=== PATIENT | female | born 1960 | race Caucasian/White ===

== ENCOUNTER 2022-03-09 13:11 | Outpatient (REF) | payer MEDICAID, SELFPAY ==
--- NOTE | ~2022-03-09 | XR_ITS ---
EXAMINATION: XR ANKLE, RIGHT XR ANKLE, LEFT XR FOOT, RIGHT XR FOOT, LEFT CLINICAL INFORMATION: M34.9 - Systemic sclerosis, unspecified COMPARISON: None TECHNIQUE: There are 2 views of each ankle and 2 views of each foot. Each side also includes a lateral view with wide [id number] to include both the ankle and foot. There are a total of 10 views, 5 on each side. FINDINGS: Right: Normal bony mineralization. The ankle mortise is symmetric. The malleoli are intact. No ankle joint narrowing or visible capsular effusion. The retrocalcaneal recess is preserved. The ankle joint and subtalar joint are unremarkable. There is a moderate plantar calcaneal spur. The midfoot is unremarkable. There are small para-articular cysts versus healed erosions involving the medial head and medial base first metatarsal and medial head first proximal phalanx without associated joint narrowing or chondrocalcinosis. There is focal soft tissue swelling adjacent to head fifth metatarsal on lateral side with a healed erosion head neck fifth metatarsal. The interphalangeal joints are unremarkable. Left: Normal bony mineralization. The ankle mortise is symmetric. The malleoli are intact. No ankle capsular effusion. The ankle joint and subtalar joints are unremarkable. The retrocalcaneal recess is preserved. There is a bulky plantar calcaneal spur. There is small subcortical cyst versus healed erosion medial base first metatarsal. The midfoot and forefoot otherwise show no joint narrowing or erosive changes. XR/XR foot LT min 3V IMPRESSION: Right: -Moderate plantar calcaneal spur. -Focal soft tissue swelling adjacent to head fifth metatarsal on lateral side with healed erosion 5th metatarsal head neck. -Small para-articular cyst versus healed erosions medial base and [id number] MT and medial [id number] PP. No joint narrowing. Left: -Bulky plantar calcaneal spur. -Small para-articular cyst versus healed erosions medial base 1st MT. No joint narrowing.
--- NOTE | ~2022-03-09 | XR_ITS ---
EXAMINATION: XR ANKLE, RIGHT XR ANKLE, LEFT XR FOOT, RIGHT XR FOOT, LEFT CLINICAL INFORMATION: M34.9 - Systemic sclerosis, unspecified COMPARISON: None TECHNIQUE: There are 2 views of each ankle and 2 views of each foot. Each side also includes a lateral view with wide [id number] to include both the ankle and foot. There are a total of 10 views, 5 on each side. FINDINGS: Right: Normal bony mineralization. The ankle mortise is symmetric. The malleoli are intact. No ankle joint narrowing or visible capsular effusion. The retrocalcaneal recess is preserved. The ankle joint and subtalar joint are unremarkable. There is a moderate plantar calcaneal spur. The midfoot is unremarkable. There are small para-articular cysts versus healed erosions involving the medial head and medial base first metatarsal and medial head first proximal phalanx without associated joint narrowing or chondrocalcinosis. There is focal soft tissue swelling adjacent to head fifth metatarsal on lateral side with a healed erosion head neck fifth metatarsal. The interphalangeal joints are unremarkable. Left: Normal bony mineralization. The ankle mortise is symmetric. The malleoli are intact. No ankle capsular effusion. The ankle joint and subtalar joints are unremarkable. The retrocalcaneal recess is preserved. There is a bulky plantar calcaneal spur. There is small subcortical cyst versus healed erosion medial base first metatarsal. The midfoot and forefoot otherwise show no joint narrowing or erosive changes. XR/XR foot RT min 3V IMPRESSION: Right: -Moderate plantar calcaneal spur. -Focal soft tissue swelling adjacent to head fifth metatarsal on lateral side with healed erosion 5th metatarsal head neck. -Small para-articular cyst versus healed erosions medial base and [id number] MT and medial [id number] PP. No joint narrowing. Left: -Bulky plantar calcaneal spur. -Small para-articular cyst versus healed erosions medial base 1st MT. No joint narrowing.
--- NOTE | ~2022-03-09 | XR_ITS ---
EXAMINATION: XR HAND WRIST, RIGHT XR HAND WRIST, LEFT CLINICAL INFORMATION: M34.9 - Systemic sclerosis, unspecified COMPARISON: Bilateral ankles and feet 03/09/2022. TECHNIQUE: Each hand and wrist are imaged in 3 large [id number]-dv-brcy images with a navicular view of the wrist. There are a total of 8 views, 4 for the left side and 4 for the right side. FINDINGS: Right: Normal bony mineralization. No periarticular demineralization. The ulnar variance is neutral. The pronator quadratus fat pad appears normal. The carpus shows no joint narrowing or chondrocalcinosis. There is a small para-articular erosion versus subcortical cyst lateral side distal navicular. The MCP and interphalangeal joints are unremarkable. No focal joint narrowing or erosive changes. Left: Normal bony mineralization. No periarticular demineralization. The ulnar variance is neutral. The pronator quadratus fat pad appears normal. The carpus shows no joint narrowing, chondrocalcinosis, or erosive change. The MCP and interphalangeal joints are unremarkable. No focal joint narrowing or erosive changes. XR/XR hand wrist LT IMPRESSION: Right: -Small para-articular erosion versus subcortical cyst lateral side distal navicular. -Otherwise, no joint narrowing or erosive changes. Left: -No joint narrowing or erosive changes.
--- NOTE | ~2022-03-09 | XR_ITS ---
EXAMINATION: XR HAND WRIST, RIGHT XR HAND WRIST, LEFT CLINICAL INFORMATION: M34.9 - Systemic sclerosis, unspecified COMPARISON: Bilateral ankles and feet 03/09/2022. TECHNIQUE: Each hand and wrist are imaged in 3 large [id number]-ta-mhhi images with a navicular view of the wrist. There are a total of 8 views, 4 for the left side and 4 for the right side. FINDINGS: Right: Normal bony mineralization. No periarticular demineralization. The ulnar variance is neutral. The pronator quadratus fat pad appears normal. The carpus shows no joint narrowing or chondrocalcinosis. There is a small para-articular erosion versus subcortical cyst lateral side distal navicular. The MCP and interphalangeal joints are unremarkable. No focal joint narrowing or erosive changes. Left: Normal bony mineralization. No periarticular demineralization. The ulnar variance is neutral. The pronator quadratus fat pad appears normal. The carpus shows no joint narrowing, chondrocalcinosis, or erosive change. The MCP and interphalangeal joints are unremarkable. No focal joint narrowing or erosive changes. XR/XR hand wrist RT IMPRESSION: Right: -Small para-articular erosion versus subcortical cyst lateral side distal navicular. -Otherwise, no joint narrowing or erosive changes. Left: -No joint narrowing or erosive changes.
--- NOTE | ~2022-03-09 | XR_ITS ---
EXAMINATION: XR ANKLE, RIGHT XR ANKLE, LEFT XR FOOT, RIGHT XR FOOT, LEFT CLINICAL INFORMATION: M34.9 - Systemic sclerosis, unspecified COMPARISON: None TECHNIQUE: There are 2 views of each ankle and 2 views of each foot. Each side also includes a lateral view with wide [id number] to include both the ankle and foot. There are a total of 10 views, 5 on each side. FINDINGS: Right: Normal bony mineralization. The ankle mortise is symmetric. The malleoli are intact. No ankle joint narrowing or visible capsular effusion. The retrocalcaneal recess is preserved. The ankle joint and subtalar joint are unremarkable. There is a moderate plantar calcaneal spur. The midfoot is unremarkable. There are small para-articular cysts versus healed erosions involving the medial head and medial base first metatarsal and medial head first proximal phalanx without associated joint narrowing or chondrocalcinosis. There is focal soft tissue swelling adjacent to head fifth metatarsal on lateral side with a healed erosion head neck fifth metatarsal. The interphalangeal joints are unremarkable. Left: Normal bony mineralization. The ankle mortise is symmetric. The malleoli are intact. No ankle capsular effusion. The ankle joint and subtalar joints are unremarkable. The retrocalcaneal recess is preserved. There is a bulky plantar calcaneal spur. There is small subcortical cyst versus healed erosion medial base first metatarsal. The midfoot and forefoot otherwise show no joint narrowing or erosive changes. XR/XR ankle LT min 3V IMPRESSION: Right: -Moderate plantar calcaneal spur. -Focal soft tissue swelling adjacent to head fifth metatarsal on lateral side with healed erosion 5th metatarsal head neck. -Small para-articular cyst versus healed erosions medial base and [id number] MT and medial [id number] PP. No joint narrowing. Left: -Bulky plantar calcaneal spur. -Small para-articular cyst versus healed erosions medial base 1st MT. No joint narrowing.
--- NOTE | ~2022-03-09 | XR_ITS ---
EXAMINATION: XR ANKLE, RIGHT XR ANKLE, LEFT XR FOOT, RIGHT XR FOOT, LEFT CLINICAL INFORMATION: M34.9 - Systemic sclerosis, unspecified COMPARISON: None TECHNIQUE: There are 2 views of each ankle and 2 views of each foot. Each side also includes a lateral view with wide [id number] to include both the ankle and foot. There are a total of 10 views, 5 on each side. FINDINGS: Right: Normal bony mineralization. The ankle mortise is symmetric. The malleoli are intact. No ankle joint narrowing or visible capsular effusion. The retrocalcaneal recess is preserved. The ankle joint and subtalar joint are unremarkable. There is a moderate plantar calcaneal spur. The midfoot is unremarkable. There are small para-articular cysts versus healed erosions involving the medial head and medial base first metatarsal and medial head first proximal phalanx without associated joint narrowing or chondrocalcinosis. There is focal soft tissue swelling adjacent to head fifth metatarsal on lateral side with a healed erosion head neck fifth metatarsal. The interphalangeal joints are unremarkable. Left: Normal bony mineralization. The ankle mortise is symmetric. The malleoli are intact. No ankle capsular effusion. The ankle joint and subtalar joints are unremarkable. The retrocalcaneal recess is preserved. There is a bulky plantar calcaneal spur. There is small subcortical cyst versus healed erosion medial base first metatarsal. The midfoot and forefoot otherwise show no joint narrowing or erosive changes. XR/XR ankle RT min 3V IMPRESSION: Right: -Moderate plantar calcaneal spur. -Focal soft tissue swelling adjacent to head fifth metatarsal on lateral side with healed erosion 5th metatarsal head neck. -Small para-articular cyst versus healed erosions medial base and [id number] MT and medial [id number] PP. No joint narrowing. Left: -Bulky plantar calcaneal spur. -Small para-articular cyst versus healed erosions medial base 1st MT. No joint narrowing.
[2022-03-09 15:52] LABS: MANUAL DIFF FLAG NO
[2022-03-09 16:36] LABS: Basophils Percent Auto 0.4 % (0-2); Eosinophils Absolute Auto 0.1 X10*3/uL (0.0-0.4); Eosinophils Percent Auto 1.8 % (0-4); Hematocrit 36.8 % (37.0-47.0); Hemoglobin 12.1 g/dl (12.0-16.0); Imm Gran Abs Auto 0.01 X10*3/uL (0.00-0.03); Imm Gran Pct Auto 0.2 % (0.0-0.4); Lymphocytes Absolute Auto 2.3 X10*3/uL (1.2-4.9); Mean Corpuscular HGB Conc 32.9 g/dl (31.0-35.0); Mean Corpuscular Hemoglobin 34.8 pg (27.0-33.0); Mean Corpuscular Volume 105.7 fL (80.0-98.0); Mean Platelet Volume 9.4 fL (9.4-12.3); Monocytes Absolute Auto 0.4 X10*3/uL (0.1-1.2); Monocytes Percent Auto 8.2 % (2-11); Neutrophils Absolute Auto 1.7 x10*3/uL (2.0-8.3); Neutrophils Percent Auto 38.4 % (45-73); Platelet Count 342 X10*3/uL (160-400); Red Blood Count 3.48 X10*6/uL (4.20-5.50); Red Cell Distribution Width 13.4 % (11.0-16.0); White Blood Count 4.5 X10*3/uL (4.8-10.8)
[2022-03-09 17:26] LABS: Alanine Aminotransferase 16 U/L (0-31); Albumin Level 4.6 g/dL (3.5-5.0); Alkaline Phosphatase 66 U/L (39-117); Anion Gap 14 (12-20); Aspartate Amino Transferase 22 U/L (5-31); Bilirubin Total 0.8 mg/dL (0.0-1.0); Blood Urea Nitrogen 14 mg/dL (9-16); C Reactive Protein 0.21 mg/dL (< or = 0.50); Calcium 9.5 mg/dL (8.4-10.2); Carbon Dioxide 24 mmol/L (22-29); Chloride 104 mmol/L (96-108); Estimated Glomerular Filt Rate > 60; Ferritin 85 ng/mL (10-250); Glucose Random 72 mg/dL (60-115); Iron 69 mcg/dL (30-160); Percent Iron Saturation 27 % (15-50); Potassium 3.8 mmol/L (3.3-5.1); Sodium 138 mmol/L (135-145); Total Iron Binding Capacity 259 mcg/dL (228-428); Total Protein 7.1 g/dL (6.5-8.0); Unsaturated Iron Binding 190 ug/dL
[2022-03-09 17:36] LABS: Erythrocyte Sedimentation Rate 10 MM/HR (0-20)
[2022-03-09 17:37] LABS: Rheumatoid Factor 228.9 IU/mL (<15.0)
[2022-03-09 17:38] LABS: Folate > 20.0 ng/mL (> or = 4.0); Vitamin B12 1270 pg/mL (200-900)
[2022-03-09 18:07] LABS: Appearance Urine Clear; Color Urine Dark Yellow; Glucose Urine UA Negative (Negative); Leukocyte Esterase Urine Negative (Negative); Nitrite Urine Negative (Negative); Urine Blood Negative (Negative); Urine Ketones 15 mg/dL (Negative); Urine Protein Negative (Neg-Trace)
[2022-03-09 18:16] LABS: Bacteria Urine None Seen (None Seen); Hyaline Casts Urine 0-2 /LPF (0-2); RBC Urine 0-2 /HPF (0-2); Squamous Epithelial Cell Urine 0-2 /HPF (0-2); WBC Urine 0-5 /HPF (0-5)
[2022-03-09 18:18] LABS: Creatinine Urine 89.23 mg/dL; Protein/Creatinine Ratio, Ur 0.09 (<0.2); Total Protein Urine Random 8 mg/dL (<12)
[2022-03-10 22:57] LABS: Complement C3 113 mg/dL (83-193)
[2022-03-11 09:36] LABS: HBS Num1 0.41 mIU/mL (0-7.99); HBc Num1 0.08 S/CO (0.00-0.79); HBsAGNum1 0.33 S/CO (0.00-0.99); Hepatitis A Antibody IgM 0.12 Index (0-0.79); Hepatitis B Core Antibody Nonreactive (Nonreactive); Hepatitis B Surface Antigen Negative (Negative); ~HepC Num1 0.07 S/CO (0.00-0.79); ~Hepatitis A Antibody IgM Nonreactive (Nonreactive); ~Hepatitis B Surface Antibody NONREACTIVE (Nonreactive); ~Hepatitis C Antibody Nonreactive (Nonreactive)
[2022-03-11 13:02] LABS: Transferrin 194 mg/dL (188-341)
[2022-03-11 13:39] LABS: IgA 232 mg/dL (47-310); IgG 1013 mg/dL (600-1640); IgM 122 mg/dL (50-300)
[2022-03-11 15:54] LABS: Anti Nuclear Antibody Screen NEGATIVE (NEGATIVE)
[2022-03-12 02:24] LABS: TS Negative Control Passed; TS Panel A 0; TS Panel B 0; TS Positive Control Passed; TSpotTB Negative (Negative)
[2022-03-12 04:44] LABS: Anti DNA DS Antibody 1 IU/mL; Antibody to SS-A Antigen <1.0 NEG AI (<1.0 NEG); Antibody to SS-B Antigen <1.0 NEG AI (<1.0 NEG); Cardiolipin IgG Ab <2.0 GPL-U/mL; Cardiolipin IgM Ab 8.2 MPL-U/mL; SM/Ribonucleoprotein Ab <1.0 NEG AI (<1.0 NEG); Smith Protein <1.0 NEG AI (<1.0 NEG)
[2022-03-15 15:43] LABS: Cyclic Citrullinated Peptide >250 UNITS
[2022-03-16 00:24] LABS: PTT (LAC) Screen 30 sec (<=40)
[2022-03-16 06:53] LABS: Beta-2 Glycoprotein IgA <2.0 U/mL (<20.0); Beta-2 Glycoprotein IgG <2.0 U/mL (<20.0); Beta-2 Glycoprotein IgM 7.6 U/mL (<20.0)
[2022-03-16 11:19] LABS: Prot Elec - Albumin 4.4 g/dL (3.8-4.8); Prot Elec - Alpha1 0.3 g/dL (0.2-0.3); Prot Elec - Alpha2 0.6 g/dL (0.5-0.9); Prot Elec - Beta 1 0.4 g/dL (0.4-0.6); Prot Elec - Beta 2 0.3 g/dL (0.2-0.5)
[2022-03-17 13:13] LABS: Centromere Protein A Ab <11 SI (<11); Centromere Protein B Ab <11 SI (<11); Fibrillarin Ab <11 SI (<11); PM SCL 100 Ab <11 SI (<11); PM SCL 75 Ab <11 SI (<11); RNA Polymerase III RP11 Ab <11 SI (<11); RNA Polymerase III RP155 Ab <11 SI (<11); SCL-70 Extractable Nuclear Ab <11 SI (<11); Th-To Ab <11 SI (<11); U1 SNRNP RNP 70KD <11 SI (<11); U1 SNRNP RNP A <11 SI (<11); U1 SNRNP RNP C <11 SI (<11)
== END 2022-03-09 13:12 | disposition home or self-care (01) ==
LOC: HO.LAB 13:11
PROVIDERS: PCP Family Medicine; Visit Provider Student in an Organized Health Care Education/Training Program
DX: Z11.59 Encounter for screening for other viral diseases (principal); Z11.7 Encounter for testing for latent tuberculosis infection; M05.79 Rheumatoid arthritis with rheumatoid factor of multiple sites without organ or systems involvement; M34.9 Systemic sclerosis, unspecified; D64.9 Anemia, unspecified; I73.00 Raynaud's syndrome without gangrene
CPT/HCPCS: 36415; 73110; 73130; 73610; 73630; 80053; 81001; 82550; 82607; 82728; 82746; 82784; 83540; 84156; 84165; 84182; 84466; 85025; 85597; 85613; 85652; 85730; 86038; 86039; 86140; 86146; 86147; 86160; 86200; 86225; 86235; 86334; 86431; 86481; 86704; 86706; 86709; 86803; 87340; 99202

== ENCOUNTER → 2022-04-29 13:43 | Outpatient (BNVA) | payer MEDICAID, SELFPAY | PROVIDERS: PCP Family Medicine; Visit Provider Student in an Organized Health Care Education/Training Program | DX: M05.79 Rheumatoid arthritis with rheumatoid factor of multiple sites without organ or systems involvement (principal); Z79.899 Other long term (current) drug therapy | CPT/HCPCS: 99212 ==

== ENCOUNTER → 2022-07-19 15:42 | Outpatient (BNVA) | payer OTHER, SELFPAY | PROVIDERS: PCP Family Medicine; Visit Provider Student in an Organized Health Care Education/Training Program | DX: M05.79 Rheumatoid arthritis with rheumatoid factor of multiple sites without organ or systems involvement (principal); E03.9 Hypothyroidism, unspecified; E55.9 Vitamin D deficiency, unspecified; Z79.52 Long term (current) use of systemic steroids; Z79.631 Long term (current) use of antimetabolite agent; Z79.899 Other long term (current) drug therapy | CPT/HCPCS: 99212 ==

== ENCOUNTER 2022-10-20 13:58 | Outpatient (AMB) | payer MEDICAID, SELFPAY ==
[2022-10-20 14:01] VITALS: BP 104/62; PULSE 89; TEMP 36.8; O2SAT 94; BMI 22.6
--- NOTE | 2022-10-20 14:01 | MHC.OFFVIS ---
Intake Vital Signs 10/20/22 14:01 Height 5 ft 1 in Weight 119 lb 11.376 oz BMI 22.6 BP 104/62 Blood Pressure Location Rt brachial Position Sitting Pulse 89 Pulse Source Pulse Oximeter Temp 98.2 F Temp Source Temporal Artery Scan Pulse Oximetry (%) 94 Oxygen Delivery Method Room Air Intake Visit Reasons: Rheumatoid Arthritis Intake Note: Pt presents as a f/u for Rheumatoid Arthritis Cash Register Operator Required: No Allergies No Known Allergies Allergy (Verified 10/20/22 14:07) Medication List - Last Reconciled 10/20/22 by Costa Mayo MD albuterol sulfate 90 mcg/actuation (ProAir HFA) 2 puffs inhalation Q6H PRN cetirizine (All Day Allergy (cetirizine)) 10 mg PO DAILY cholecalciferol (vitamin D3) 25 mcg PO DAILY cyclobenzaprine 10 mg PO BEDTIME PRN duloxetine 60 mg PO DAILY duloxetine 20 mg PO DAILY estradiol 1 mg PO DAILY fluticasone propionate 110 mcg/actuation (Flovent HFA) 1 puff inhalation BID PRN fluticasone propionate 50 mcg/actuation (Allergy Relief (fluticasone)) 1 spray intranasal DAILY PRN folic acid 1 mg PO DAILY hydrocodone-acetaminophen 5-325 mg 1 tab PO BID PRN hydroxychloroquine (Plaquenil) 300 mg (1.5 x 200 mg) PO DAILY leucovorin calcium 15 mg PO DAILY liothyronine 10 mcg PO DAILY methotrexate sodium 15 mg (6 x 2.5 mg) PO QWEEK prednisone 3 tabs once daily with breakfast for 1 week then 2 tabs daily for 1 week then 1 tab daily for 1 week then stop progesterone micronized 100 mg PO DAILY sulfasalazine TAKE 3 TABLETS BY MOUTH TWICE DAILY thyroid (pork) ([facility] Thyroid) 60 mg orally .1 times a week; thyroid (pork) ([facility] Thyroid) 90 mg PO QAM HPI HPI Comments History of Present Illness Details 62-year-old female with seropositive RA returns for follow-up. Currently on sulfasalazine 3 g daily, hydroxychloroquine 300 mg daily and methotrexate 15 mg daily. She stated that she was evaluated by an integrative medicine specialist 3-4 months ago and she is currently getting treatments for Lyme disease. She states that treatment lasts for about a year. She states that she feels better overall. She gets less joint pain and swelling. She took Actemra for 1-2 doses and she had brain fog. She attributed it to Actemra and she discontinued it Initial history: This is a 61-year-old female presents for evaluation of rheumatoid arthritis. Patient was diagnosed around [address] Marino, she was initially started on methotrexate, hydroxychloroquine was added. She was on leflunomide at some point but it was discontinued due to hair loss. She was also on Enbrel in August of 2020 for about 6 months then it was stopped due to lack of efficacy in summer. Sulfasalazine was started in February of 2021. Patient currently is on methotrexate 15 mg weekly, folic acid, sulfasalazine 1.5 g Twice daily and hydroxychloroquine tried mg daily. Patient states she continues to get flares of joint pain stiffness and swelling. These flares happen about once a once a month. Usually resolve with prednisone. She states that does flares are sometimes related to her diet, she might have a reaction to certain foods such as bananas, tomatoes, and sugar. Patient has been trying to avoid certain foods. She has lost 20 lb over the last few months modifying her diet [facility] Medical History Allergic rhinitis Carpal tunnel syndrome COVID Depression Hypothyroidism Insomnia detention use of drug Rheumatoid arthritis Vitamin D deficiency Surgical History Hx of section Family History Mother Hypothyroidism Scleroderma Father Hypothyroidism Paternal Grandfather Colon cancer Sister Hypothyroidism Social History Household Members: Family Alcohol intake: current Alcohol intake frequency: does not drink Patient Tobacco Use Status: Former Tobacco user Current occupational status: unemployed Review of Systems Musc Reports arthralgias Physical Exam Vital Signs: Last Vital Signs Temp 98.2 F 10/20/22 14:01 Pulse 89 10/20/22 14:01 BP 104/62 10/20/22 14:01 Pulse Ox 94 10/20/22 14:01 Oxygen Delivery Method Room Air 10/20/22 14:01 BMI result Body Mass Index 22.6 Const General: cooperative, healthy appearing, comfortable and no acute distress Nutritional Appearance: average body habitus Orientation/consciousness: patient oriented x3 Limitations: no limitations HEENT Head: Yes normocephalic and Yes atraumatic Resp Effort & Inspection: normal respiratory effort and able to speak in complete sentences GI Inspection: No distended Palpation (GI): Soft to palpation and nontender Neuro General: patient oriented x3 Extrem Other: No active synovitis today. No swollen or tender joints. Normal range of motion of both hands, wrists, elbows, shoulders Bilateral knee crepitus without pain. Assessment & Plan Assessment & Plan (1) Rheumatoid arthritis: Comment: Dx 2018 +RF+++CCP Enbrel ineffective? Triple therapy methotrexate 20mg, sulfasalazine 3 g, Plaquenil since 04/2021 MTX reduced to 15 mg since 05/12 due to hair loss resulting in a flare Actemra 10/09 DC'd after 1 to 2 doses due to brain fog Code(s): M06.9 - Rheumatoid arthritis, unspecified Qualifiers: Rheumatoid arthritis location: multiple sites Rheumatoid factor presence: with rheumatoid factor Qualified Code(s): M05.79 - Rheumatoid arthritis with rheumatoid factor of multiple sites without organ or systems involvement Plan: This is a 62-year-old female with seropositive RA who presents for follow-up. She is in remission. She discontinued Actemra after 1-2 doses due to brain fog. Continue current management. Patient recently evaluated by Integrative Medicine and is currently getting treatment for Lyme disease. Per patient the treatment lasts about 1 year She continues to take hydroxychloroquine 300 mg daily and sulfasalazine 3 g daily & MTX 15 mg once weekly. Continue Leucovorin 15 mg once weekly and folic acid daily Infectious screening hepatitis panel T spot- ve 2021 Labs before next visit in 3 months (2) Long-term use of hydroxychloroquine: Code(s): Z79.899 - Other long-term (current) drug therapy Plan: Risk of retinopathy related to hydroxychloroquine discussed with patient. Continue yearly eye exam (3) detention methotrexate user: Code(s): Z79.631 - detention (current) use of antimetabolite agent Plan: Patient reduced dose from 20 mg to 15 mg due to hair loss. Labs are showing mild anemia with macrocytosis which can be due to methotrexate. Patient however is taking Leucovorin 50 mg weekly and folic acid daily. Will continue to monitor her hemoglobin and MCV. If macrocytosis continued to progress. Will consider referral to Hematology Plan I spent 28 minutes reviewing patient's chart, evaluating patient, ordering diagnostic workup, counseling patient and documenting in the chart Orders: Orders Comprehensive Met. Panel 3 Months Z79.899 - Other buttermaker continuous churn (current) drug therapy C Reactive Protein 3 Months Z79.899 - Other buttermaker continuous churn (current) drug therapy Complete Blood Count Auto Diff 3 Months Z79.899 - Other buttermaker continuous churn (current) drug therapy Erythrocyte Sedimentation Rate 3 Months Z79.899 - Other buttermaker continuous churn (current) drug therapy Medications: Changed From leucovorin calcium 15 mg (3 x 5 mg) PO DAILY 90 tabs 4RF M05.79 - Rheumatoid arthritis with rheumatoid factor of multiple sites without organ or systems involvement To leucovorin calcium 1x week 15 mg PO DAILY M05.79 - Rheumatoid arthritis with rheumatoid factor of multiple sites without organ or systems involvement Coding Level of Care Code Est Pt Level 4 (23875) Diagnoses Rheumatoid arthritis M05.79 Rheumatoid arthritis location: multiple sites Rheumatoid factor presence: with rheumatoid factor Long-term use of hydroxychloroquine Z79.899 intermodal customer service methotrexate user Z79.631
== END 2022-10-20 14:33 | disposition home or self-care (01) ==
PROVIDERS: PCP Family Medicine; Visit Provider Student in an Organized Health Care Education/Training Program
DX: M05.79 Rheumatoid arthritis with rheumatoid factor of multiple sites without organ or systems involvement (principal); Z79.899 Other long term (current) drug therapy; Z79.631 Long term (current) use of antimetabolite agent
CPT/HCPCS: 99214

== ENCOUNTER → 2022-10-20 13:58 | Outpatient (BNVA) | payer MEDICAID, SELFPAY | PROVIDERS: PCP Family Medicine; Visit Provider Student in an Organized Health Care Education/Training Program | DX: M05.79 Rheumatoid arthritis with rheumatoid factor of multiple sites without organ or systems involvement (principal); Z79.631 Long term (current) use of antimetabolite agent; Z79.899 Other long term (current) drug therapy | CPT/HCPCS: 99212 ==

== ENCOUNTER 2023-01-19 14:22 | Outpatient (AMB) | payer MEDICAID, SELFPAY ==
[2023-01-19 14:23] VITALS: BP 132/64; PULSE 75; TEMP 36.5; O2SAT 92; BMI 24.4
--- NOTE | 2023-01-19 14:23 | MHC.OFFVIS ---
Intake Vital Signs 01/19/23 14:23 Height 5 ft 1 in Weight 129 lb 3.054 oz BMI 24.4 BP 132/64 Blood Pressure Location Rt brachial Position Sitting Pulse 75 Pulse Source Pulse Oximeter Temp 97.7 F Temp Source Skin Pulse Oximetry (%) 92 Intake Visit Reasons: 2 mnts f/u for RA Intake Note: Pt last seen 10/20/21, presents today for follow up and test results. Last eye appt a year ago. Box Person Required: No Accompanied by: Self / Same As Patient Allergies No Known Allergies Allergy (Verified 01/19/23 14:27) Medication List - Last Reconciled 01/19/23 by Costa Mayo MD albuterol sulfate 90 mcg/actuation (ProAir HFA) 2 puffs inhalation Q6H PRN cetirizine (All Day Allergy (cetirizine)) 10 mg PO DAILY cholecalciferol (vitamin D3) 25 mcg PO DAILY cyclobenzaprine 10 mg PO BEDTIME PRN duloxetine 60 mg PO DAILY duloxetine 20 mg PO DAILY estradiol 1 mg PO DAILY fluticasone propionate 110 mcg/actuation (Flovent HFA) 1 puff inhalation BID PRN fluticasone propionate 50 mcg/actuation (Allergy Relief (fluticasone)) 1 spray intranasal DAILY PRN folic acid 1 mg PO DAILY hydrocodone-acetaminophen 5-325 mg 1 tab PO BID PRN hydroxychloroquine 300 mg (1.5 x 200 mg) PO DAILY leucovorin calcium 15 mg PO DAILY liothyronine 10 mcg PO DAILY montelukast 10 mg PO DAILY prednisone Take 3 tabs by mouth once daily for 5 days then 2 tabs daily for 5 days then 1 tab daily for 5 days then stop progesterone micronized 100 mg PO DAILY sulfasalazine TAKE 3 TABLETS BY MOUTH TWICE DAILY thyroid (pork) ([place] Thyroid) 60 mg orally .1 times a week; thyroid (pork) ([place] Thyroid) 90 mg PO QAM HPI HPI Comments History of Present Illness Details 62-year-old female with seropositive RA returns for follow-up. She stopped methotrexate, she does not recall when she stopped it, but it was over the last 2-3 months. She states that her hair is growing back. Currently on sulfasalazine 3 g daily, hydroxychloroquine 300 mg daily. Mentions that she started having a flare-up recently affecting her wrists, elbows and started taking prednisone taper with some improvement. She continues to follow-up with [facility] and is getting treatment for Lyme disease Initial history: This is a 61-year-old female presents for evaluation of rheumatoid arthritis. Patient was diagnosed around [address] Marino, she was initially started on methotrexate, hydroxychloroquine was added. She was on leflunomide at some point but it was discontinued due to hair loss. She was also on Enbrel in August of 2020 for about 6 months then it was stopped due to lack of efficacy in summer. Sulfasalazine was started in February of 2021. Patient currently is on methotrexate 15 mg weekly, folic acid, sulfasalazine 1.5 g Twice daily and hydroxychloroquine tried mg daily. Patient states she continues to get flares of joint pain stiffness and swelling. These flares happen about once a once a month. Usually resolve with prednisone. She states that does flares are sometimes related to her diet, she might have a reaction to certain foods such as bananas, tomatoes, and sugar. Patient has been trying to avoid certain foods. 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 COVID [facility] use of drug Rheumatoid arthritis Allergic rhinitis Carpal tunnel syndrome Insomnia Depression Vitamin D deficiency Hypothyroidism Surgical History Hx of section Family History Mother Hypothyroidism Scleroderma Father Hypothyroidism Paternal Grandfather Colon cancer Sister Hypothyroidism Social History Household Members: Family Alcohol intake: current Alcohol intake frequency: does not drink Patient Tobacco Use Status: Former Tobacco user Current occupational status: unemployed Review of Systems [facility] Reports arthralgias Neuro Details: Brain fog Physical Exam Vital Signs: Last Vital Signs Temp 97.7 F 01/19/23 14:23 Pulse 75 01/19/23 14:23 BP 132/64 01/19/23 14:23 Pulse Ox 92 01/19/23 14:23 BMI result Body Mass Index 24.4 Const General: cooperative, healthy appearing, comfortable and no acute distress Nutritional Appearance: average body habitus Orientation/consciousness: patient oriented x3 Limitations: no limitations HEENT Head: Yes normocephalic and Yes atraumatic Resp Effort & Inspection: normal respiratory effort and able to speak in complete sentences GI Inspection: No distended Palpation (GI): Soft to palpation and nontender Neuro General: patient oriented x3 Extrem Other: Left elbow pain with full extension No swollen or tender joints otherwise Assessment & Plan Assessment & Plan (1) Rheumatoid arthritis: Comment: Dx 2018 +RF+++CCP Enbrel ineffective? Triple therapy methotrexate 20mg, sulfasalazine 3 g, Plaquenil since 04/2021 MTX reduced to 15 mg since 05/12 due to hair loss resulting in a flare Actemra 10/09 DC'd after 1 to 2 doses due to brain fog Code(s): M06.9 - Rheumatoid arthritis, unspecified Qualifiers: Rheumatoid arthritis location: multiple sites Rheumatoid factor presence: with rheumatoid factor Qualified Code(s): M05.79 - Rheumatoid arthritis with rheumatoid factor of multiple sites without organ or systems involvement Plan: This is a 62-year-old female with seropositive RA who presents for follow-up. She discontinued methotrexate since last visit due to hair loss. States that her hair is growing back after discontinuation. Recently she had an RA flare that required prednisone use. Labs showed elevated inflammatory markers. She continues to take hydroxychloroquine 300 mg daily and sulfasalazine 3 g daily. We will need to add DMARDs. Patient discontinued Actemra due to brain fog. Enbrel was ineffective. Methotrexate was quite effective but patient discontinued it due to her loss. Discussed risks and benefits of Humira. Agreed to proceed. Will start prior authorization for Humira Can discontinue Leucovorin and folic acid Continue hydroxychloroquine 300 mg daily and sulfasalazine 3 g daily Infectious screening hepatitis panel T spot- ve 2021 Labs before next visit in 3 months (2) Long-term use of hydroxychloroquine: Code(s): Z79.899 - Other jail (current) drug therapy Plan: Risk of retinopathy related to hydroxychloroquine discussed with patient. Continue yearly eye exam Plan I spent 28 minutes reviewing patient's chart, evaluating patient, ordering diagnostic workup, counseling patient and documenting in the chart Orders: Orders Erythrocyte Sedimentation Rate 3 Months M06.9 - Rheumatoid arthritis, unspecified Hepatitis A,B,C Profile 3 Months Z11.59 - Encounter for screening for other viral diseases T Spot TB 3 Months Z11.7 - Encounter for testing for latent tuberculosis infection Complete Blood Count Auto Diff 3 Months M06.9 - Rheumatoid arthritis, unspecified Comprehensive Met. Panel 3 Months M06.9 - Rheumatoid arthritis, unspecified C Reactive Protein 3 Months M06.9 - Rheumatoid arthritis, unspecified Coding Level of Care Code Est Pt Level 4 (42673) Diagnoses Rheumatoid arthritis involving multiple sites with positive rheumatoid factor M05.79 Rheumatoid arthritis location: multiple sites Rheumatoid factor presence: with rheumatoid factor Long-term use of hydroxychloroquine Z79.899
== END 2023-01-19 14:55 | disposition home or self-care (01) ==
PROVIDERS: PCP Family Medicine; Visit Provider Student in an Organized Health Care Education/Training Program
DX: M05.79 Rheumatoid arthritis with rheumatoid factor of multiple sites without organ or systems involvement (principal); Z79.899 Other long term (current) drug therapy
CPT/HCPCS: 99214

== ENCOUNTER → 2023-01-19 14:22 | Outpatient (BNVA) | payer MEDICAID, SELFPAY | PROVIDERS: PCP Family Medicine; Visit Provider Student in an Organized Health Care Education/Training Program | DX: M05.79 Rheumatoid arthritis with rheumatoid factor of multiple sites without organ or systems involvement (principal); Z79.899 Other long term (current) drug therapy | CPT/HCPCS: 99212 ==

== ENCOUNTER 2023-06-19 11:48 | Outpatient (AMB) | payer MEDICAID, SELFPAY ==
[2023-06-19 11:52] VITALS: BP 126/70; PULSE 71; O2SAT 96; BMI 24.7
--- NOTE | 2023-06-19 11:52 | MHC.OFFVIS ---
Intake Vital Signs 06/19/23 11:52 Height 5 ft 1 in Weight 130 lb 8.218 oz BMI 24.7 BP 126/70 Blood Pressure Location Rt brachial Position Sitting Pulse 71 Pulse Source Pulse Oximeter Pulse Oximetry (%) 96 Oxygen Delivery Method Room Air Intake Visit Reasons: RA/cm Intake Note: Patient last seen 01/19/23 presents today for follow up and test results. Appeals Manager Required: No Accompanied by: Self / Same As Patient Allergies No Known Allergies Allergy (Verified 06/19/23 11:54) Medication List - Last Reconciled 06/19/23 by Costa Mayo MD albuterol sulfate 90 mcg/actuation (ProAir HFA) 2 puffs inhalation Q6H PRN cetirizine (All Day Allergy (cetirizine)) 10 mg PO DAILY cholecalciferol (vitamin D3) 25 mcg PO DAILY cyclobenzaprine 10 mg PO BEDTIME PRN duloxetine 60 mg PO DAILY duloxetine 20 mg PO DAILY estradiol 1 mg PO DAILY fluticasone propionate 110 mcg/actuation (Flovent HFA) 1 puff inhalation BID PRN fluticasone propionate 50 mcg/actuation (Allergy Relief (fluticasone)) 1 spray intranasal DAILY PRN Humira(CF) Pen (adalimumab) 40 mg (0.4 mL) subcut Q2W NS hydrocodone-acetaminophen 5-325 mg 1 tab PO BID PRN hydroxychloroquine 300 mg (1.5 x 200 mg) PO DAILY liothyronine 10 mcg PO DAILY prednisone Take 3 tabs by mouth once daily for 5 days then 2 tabs daily for 5 days then 1 tab daily for 5 days then stop progesterone micronized 100 mg PO DAILY sulfasalazine 1,500 mg (3 x 500 mg) PO BID thyroid (pork) ([place] Thyroid) 90 mg PO QAM HPI HPI Comments History of Present Illness Details 62-year-old female with seropositive RA returns for follow-up. She is on sulfasalazine 3 g daily, hydroxychloroquine 300 mg daily and started Humira 40 mg every other week after last visit. She states that she feels about the same overall. She states that she gets joint pains and swelling usually related to sugar consumption. Sometimes related to tomato consumption. She continues to get treatment for Lyme disease. States that the treatment can take up to 2 years. She has been on the treatment for about a year. The treatment according to patient consists of herbs for her joint pain, she took prednisone a few weeks ago and it did not help much Initial history: This is a 61-year-old female presents for evaluation of rheumatoid arthritis. Patient was diagnosed around [address] Marino, she was initially started on methotrexate, hydroxychloroquine was added. She was on leflunomide at some point but it was discontinued due to hair loss. She was also on Enbrel in August of 2020 for about 6 months then it was stopped due to lack of efficacy in summer. Sulfasalazine was started in February of 2021. Patient currently is on methotrexate 15 mg weekly, folic acid, sulfasalazine 1.5 g Twice daily and hydroxychloroquine tried mg daily. Patient states she continues to get flares of joint pain stiffness and swelling. These flares happen about once a once a month. Usually resolve with prednisone. She states that does flares are sometimes related to her diet, she might have a reaction to certain foods such as bananas, tomatoes, and sugar. Patient has been trying to avoid certain foods. She has lost 20 lb over the last few months modifying her diet [facility] Medical History (Updated 06/19/23 @ 12:14 by Costa Mayo MD) COVID group home use of drug Rheumatoid arthritis Allergic rhinitis Carpal tunnel syndrome Insomnia Depression Vitamin D deficiency Hypothyroidism Surgical History Hx of section Family History Mother Hypothyroidism Scleroderma Father Hypothyroidism Paternal Grandfather Colon cancer Sister Hypothyroidism Social History Household Members: Family Alcohol intake: current Alcohol intake frequency: does not drink Patient Tobacco Use Status: Former Tobacco user Current occupational status: unemployed Review of Systems [facility] Reports arthralgias and Reports joint swelling Physical Exam Vital Signs: BMI result Body Mass Index 24.7 Const General: cooperative, healthy appearing, comfortable and no acute distress Nutritional Appearance: average body habitus Orientation/consciousness: patient oriented x3 Limitations: no limitations HEENT Head: Yes normocephalic and Yes atraumatic Resp Effort & Inspection: normal respiratory effort and able to speak in complete sentences GI Inspection: No distended Palpation (GI): Soft to palpation and nontender Neuro General: patient oriented x3 Extrem Other: Mild right wrist swelling and mild pain with flexion and extension No active synovitis otherwise Assessment & Plan Assessment & Plan (1) Rheumatoid arthritis: Comment: Dx 2018 +RF+++CCP Enbrel ineffective? Triple therapy methotrexate 20mg, sulfasalazine 3 g, Plaquenil since 04/2021 MTX reduced to 15 mg since 05/12 due to hair loss resulting in a flare DC by patient due to hair loss 01/2023 Actemra 10/09 DC'd after 1 to 2 doses due to brain fog Humira 02/2023 effective Code(s): M06.9 - Rheumatoid arthritis, unspecified Qualifiers: Rheumatoid arthritis location: multiple sites Rheumatoid factor presence: with rheumatoid factor Qualified Code(s): M05.79 - Rheumatoid arthritis with rheumatoid factor of multiple sites without organ or systems involvement Plan: This is a 62-year-old female with seropositive RA who presents for follow-up. She is on sulfasalazine 3 g daily, hydroxychloroquine 300 mg daily and Humira 40 mg every other week. 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 Continue yearly eye exam (3) On sulfasalazine therapy: Code(s): Z79.899 - Other assisted (current) drug therapy Plan: Monitor safety labs Plan I spent 28 minutes reviewing patient's chart, evaluating patient, ordering diagnostic workup, counseling patient and documenting in the chart Orders: Orders Erythrocyte Sedimentation Rate 4 Months M06.9 - Rheumatoid arthritis, unspecified Complete Blood Count Auto Diff 4 Months M06.9 - Rheumatoid arthritis, unspecified Comprehensive Met. Panel 4 Months M06.9 - Rheumatoid arthritis, unspecified C Reactive Protein 4 Months M06.9 - Rheumatoid arthritis, unspecified Coding Level of Care Code Est Pt Level 4 (43322) Diagnoses Rheumatoid arthritis involving multiple sites with positive rheumatoid factor M05.79 Rheumatoid arthritis location: multiple sites Rheumatoid factor presence: with rheumatoid factor Long-term use of hydroxychloroquine Z79.899 On sulfasalazine therapy Z79.899
== END 2023-06-19 12:10 | disposition home or self-care (01) ==
PROVIDERS: PCP Family Medicine; Visit Provider Student in an Organized Health Care Education/Training Program
DX: M05.79 Rheumatoid arthritis with rheumatoid factor of multiple sites without organ or systems involvement (principal); Z79.899 Other long term (current) drug therapy
CPT/HCPCS: 99214

== ENCOUNTER → 2023-06-19 11:48 | Outpatient (BNVA) | payer MEDICAID, SELFPAY | PROVIDERS: PCP Family Medicine; Visit Provider Student in an Organized Health Care Education/Training Program | DX: M05.79 Rheumatoid arthritis with rheumatoid factor of multiple sites without organ or systems involvement (principal); Z79.52 Long term (current) use of systemic steroids; Z79.899 Other long term (current) drug therapy | CPT/HCPCS: 99212 ==

== ENCOUNTER 2023-12-13 13:31 | Outpatient (AMB) | payer MEDICAID, SELFPAY ==
[2023-12-13 13:35] VITALS: BP 130/62; PULSE 71; O2SAT 95; BMI 23.8
--- NOTE | 2023-12-13 13:35 | A.OFFPC_ITS ---
Vital Signs 12/13/23 13:35 Height 5 ft 1 in Weight 126 lb BMI 23.8 Intake Visit Reasons: RA/ Intake Note: Patient last seen Doctor Costa Mayo on 06/19/23. Presents today for follow up on OA and test results. Allergies No Known Allergies Allergy (Verified 06/19/23 11:54) [facility] Medical History (Updated 06/19/23 @ 12:14 by Costa Mayo MD) COVID prison use of drug Rheumatoid arthritis Allergic rhinitis Carpal tunnel syndrome Insomnia Depression Vitamin D deficiency Hypothyroidism Surgical History Hx of section Family History Mother Hypothyroidism Scleroderma Father Hypothyroidism Paternal Grandfather Colon cancer Sister Hypothyroidism Social History Household Members: Family Alcohol intake: current Alcohol intake frequency: does not drink Patient Tobacco Use Status: Former Tobacco user Current occupational status: unemployed Physical exam (Primary Care) Tobacco/Smoking Status: Tobacco use Status Patient Tobacco Use Status Former Tobacco user 10/20/22 14:13 Coding
--- NOTE | 2023-12-13 13:39 | MHC.OFFVIS ---
Vital Signs 12/13/23 13:35 Height 5 ft 1 in Weight 126 lb BMI 23.8 BP 130/62 Position Sitting Pulse 71 Pulse Source Pulse Oximeter Pulse Oximetry (%) 95 Oxygen Delivery Method Room Air Intake Visit Reasons: RA/ Allergies No Known Allergies Allergy (Verified 12/13/23 13:39) Medication List - Last Reconciled 12/13/23 by Costa Mayo MD albuterol sulfate 90 mcg/actuation (ProAir HFA) 2 puffs inhalation Q6H PRN cetirizine (All Day Allergy (cetirizine)) 10 mg PO DAILY cholecalciferol (vitamin D3) 25 mcg PO DAILY cyclobenzaprine 10 mg PO BEDTIME PRN duloxetine 60 mg PO DAILY duloxetine 20 mg PO DAILY estradiol 1 mg PO DAILY fluticasone propionate 110 mcg/actuation (Flovent HFA) 1 puff inhalation BID PRN fluticasone propionate 50 mcg/actuation (Allergy Relief (fluticasone)) 1 spray intranasal DAILY PRN hydrocodone-acetaminophen 5-325 mg 1 tab PO BID PRN hydroxychloroquine 300 mg (1.5 x 200 mg) PO DAILY liothyronine 10 mcg PO DAILY prednisone Take 3 tabs by mouth once daily for 5 days then 2 tabs daily for 5 days then 1 tab daily for 5 days then stop progesterone micronized 100 mg PO DAILY sulfasalazine 1.5 grams (3 x 500 mg) PO BID thyroid (pork) ([place] Thyroid) 90 mg PO QAM HPI Comments Details: 63-year-old female with seropositive RA returns for follow-up. She is on sulfasalazine 3 g daily, hydroxychloroquine 300 mg daily. She states that she discontinued Humira months ago. She was advised by her integrative medicine specialist to discontinue it as it can delay Lyme treatment. She remains on lyme treatment. She states that she had a bad COVID infection last month and she was very fatigued for about a week. She states that she was having a flare-up a few weeks ago affecting multiple joints treated with prednisone. Initial history: This is a 61-year-old female presents for evaluation of rheumatoid arthritis. Patient was diagnosed around [address] Marino, she was initially started on methotrexate, hydroxychloroquine was added. She was on leflunomide at some point but it was discontinued due to hair loss. She was also on Enbrel in August of 2020 for about 6 months then it was stopped due to lack of efficacy in summer. Sulfasalazine was started in February of 2021. Patient currently is on methotrexate 15 mg weekly, folic acid, sulfasalazine 1.5 g Twice daily and hydroxychloroquine tried mg daily. Patient states she continues to get flares of joint pain stiffness and swelling. These flares happen about once a once a month. Usually resolve with prednisone. She states that does flares are sometimes related to her diet, she might have a reaction to certain foods such as bananas, tomatoes, and sugar. Patient has been trying to avoid certain foods. She has lost 20 lb over the last few months modifying her diet [facility] Medical History COVID long-term use of drug Rheumatoid arthritis Allergic rhinitis Carpal tunnel syndrome Insomnia Depression Vitamin D deficiency Hypothyroidism Surgical History Hx of section Family History Mother Hypothyroidism Scleroderma Father Hypothyroidism Paternal Grandfather Colon cancer Sister Hypothyroidism Social History Household Members: Family Alcohol intake: current Alcohol intake frequency: does not drink Patient Tobacco Use Status: Former Tobacco user Current occupational status: unemployed Female Reproductive History Menstrual Total pregnancies: 2 Number of Living Children: 2 Review of Systems [facility] Reports arthralgias and Denies joint swelling Physical Exam Vital Signs: BMI result Body Mass Index 23.8 Const General: cooperative, healthy appearing, comfortable and no acute distress Nutritional Appearance: average body habitus Orientation/consciousness: patient oriented x3 Limitations: no limitations HEENT Head: Yes normocephalic and Yes atraumatic Resp Effort & Inspection: normal respiratory effort and able to speak in complete sentences GI Inspection: No distended Palpation (GI): Soft to palpation and nontender Neuro General: patient oriented x3 Extrem Other: No wrist swelling or tenderness or pain with flexion-extension bilaterally Left 2nd 3rd and 4th MCP synovial thickening without tenderness Bilateral elbow pain with full extension but no swelling or warmth No knee pain with flexion-extension bilaterally No ankle tenderness or swelling bilaterally Assessment & Plan Assessment & Plan (1) Rheumatoid arthritis: Comment: Dx 2018 +RF+++CCP Enbrel ineffective? Triple therapy methotrexate 20mg, sulfasalazine 3 g, Plaquenil since 04/2021 MTX reduced to 15 mg since 05/12 due to hair loss resulting in a flare DC by patient due to hair loss 01/2023 Actemra 10/09 DC'd after 1 to 2 doses due to brain fog Humira 02/2023 effective self dc in the middle of 2023 (concern for delaying Lyme treatment) Code(s): M06.9 - Rheumatoid arthritis, unspecified Category: Medical Qualifiers: Rheumatoid arthritis location: multiple sites Rheumatoid factor presence: with rheumatoid factor Qualified Code(s): M05.79 - Rheumatoid arthritis with rheumatoid factor of multiple sites without organ or systems involvement Plan: This is a 63-year-old female with seropositive RA who presents for follow-up. She is on sulfasalazine 3 g daily, hydroxychloroquine 300 mg daily. She self-discontinued the Humira a few months ago based on her [facility]ists instruction as she was told it may delay Lyme treatment Patient continues to have intermittent flare-ups that require prednisone. Discussed the definite long-term risks of using prednisone versus DMARDs. Discussed with patient that if she starts to have more frequent and more severe flare-ups to call the office and we will represcribed the Humira Infectious screening hepatitis panel T spot- ve 04/2023 Labs before next visit in 4 months (2) Long-term use of hydroxychloroquine: Code(s): Z79.899 - Other residential (current) drug therapy Category: Medical Plan: Risk of retinopathy related to hydroxychloroquine discussed with patient. Continue yearly eye exam. She states that she had an eye exam this year. I will request most recent visit (3) On sulfasalazine therapy: Code(s): Z79.899 - Other residential (current) drug therapy Category: Medical Plan: Monitor safety labs Plan I spent 28 minutes reviewing patient's chart, evaluating patient, ordering diagnostic workup, counseling patient and documenting in the chart Orders: Orders C Reactive Protein 4 Months M079 - Rheumatoid arthritis with rheumatoid factor of multiple sites without organ or systems involvement Complete Blood Count Auto Diff 4 Months M0 - Rheumatoid arthritis with rheumatoid factor of multiple sites without organ or systems involvement Comprehensive Met. Panel 4 Months M05.79 - Rheumatoid arthritis with rheumatoid factor of multiple sites without organ or systems involvement Erythrocyte Sedimentation Rate 4 Months M05.79 - Rheumatoid arthritis with rheumatoid factor of multiple sites without organ or systems involvement Coding Level of Care Code Est Pt Level 4 (79946) Complex EM visit Add On G2211 Diagnoses Rheumatoid arthritis involving multiple sites with positive rheumatoid factor M05.79 Rheumatoid arthritis location: multiple sites Rheumatoid factor presence: with rheumatoid factor Long-term use of hydroxychloroquine Z79.899 On sulfasalazine therapy Z79.899
== END 2023-12-13 13:55 | disposition home or self-care (01) ==
PROVIDERS: PCP Family Medicine; Visit Provider Student in an Organized Health Care Education/Training Program
DX: M05.79 Rheumatoid arthritis with rheumatoid factor of multiple sites without organ or systems involvement (principal); Z79.899 Other long term (current) drug therapy
CPT/HCPCS: 99214; G2211

== ENCOUNTER → 2023-12-13 13:31 | Outpatient (BNVA) | payer MEDICAID, SELFPAY | PROVIDERS: PCP Family Medicine; Visit Provider Student in an Organized Health Care Education/Training Program | DX: M05.79 Rheumatoid arthritis with rheumatoid factor of multiple sites without organ or systems involvement (principal); Z79.899 Other long term (current) drug therapy | CPT/HCPCS: 99212 ==